=== PATIENT | male | born 1965 | race Caucasian/White ===

== ENCOUNTER 2017-08-14 02:18 | Observation (INO) | payer BC ==
[~2017-08-14] VITALS: Ht 172.7 cm; Wt 86.8 kg
[2017-08-14 02:56] LABS: HEMATOCRIT 41.4 % (38.0-50.0); HEMOGLOBIN 14.7 G/DL (12.5-16.6); MCH 32.5 PG (29.0-34.0); MCHC 35.5 G/DL (30.0-36.0); MCV 91.6 FL (86-99); PLATELET COUNT 271 K/uL (156-360); RBC DIS.WIDTH-CV 12.2 % (11.8-14.6); RED BLOOD COUNT 4.52 M/uL (4.00-5.50); WHITE BLOOD COUNT 14.3 K/uL (4.1-10.2)
[2017-08-14 03:10] LABS: ALBUMIN 4.6 g/dL (3.2-4.8); CHLORIDE 104 mEq/L (99-109); POTASSIUM 4.4 mEq/L (3.7-5.4); SODIUM 138 mEq/L (136-147)
[2017-08-14 03:12] LABS: GLUCOSE 166 mg/dL (70-99)
[2017-08-14 03:13] LABS: TOTAL PROTEIN 7.1 g/dL (6.4-8.3)
[2017-08-14 03:14] LABS: TOTAL BILIRUBIN 0.4 mg/dL (0.0-1.0)
[2017-08-14 03:16] LABS: ALKALINE PHOSPHATASE 77 IU/L (3-129); TROP-I INTERPRETATION NEGATIVE; TROPONIN-I < 0.01 ng/mL (0.0-0.30)
[2017-08-14 03:17] LABS: UREA NITROGEN (BUN) 18 mg/dL (9-23)
[2017-08-14 03:18] LABS: AST (GOT) 26 IU/L (2-34)
[2017-08-14 03:19] LABS: ALT (GPT) 38 IU/L (3-49); LIPASE 17 U/L (1.0-51.0)
[2017-08-14 03:26] LABS: GFR ESTIMATE (CALCULATED) > 59 mL/min/ (58.99-99999)
[2017-08-14 05:43] LABS: APPEARANCE CLEAR ((CLEAR)); BILIRUBIN NEGATIVE; BLOOD SMALL; COLOR STRAW ((YELLOW)); GLUCOSE (STRIP) 50; KETONES 5; LEUKOCYTES NEGATIVE; NITRITE NEGATIVE; PROTEIN (STRIP) NEGATIVE; SPECIFIC GRAVITY 1.011 (1.000-1.030); UROBILINOGEN 0.2 MG/DL (0.2-1.0)
[2017-08-14 06:15] LABS: BACTERIA NONE SEEN /HPF; EPITHELIAL CELLS NONE SEEN /HPF; MUCUS NONE SEEN /LPF; RED BLOOD CELLS 0-5 /HPF (0-5); UCUL ADDED? NO; WHITE BLOOD CELLS 0-5 /HPF (0-5)
[2017-08-14 17:44] VITALS: BP 136/102
[2017-08-14 18:58] VITALS: BP 142/89
[2017-08-14 23:36] VITALS: BP 138/90
[2017-08-15 04:19] VITALS: BP 125/74
[2017-08-15 07:58] VITALS: BP 144/105
[2017-08-15] MEDS ORDERED: BACTRIM,SEPT1 TABLET PO (09:13)
[2017-08-15] MEDS ORDERED: ENDOCET 5-3251 EACH PO (09:13)
[2017-08-15] MEDS ORDERED: TAMSULOSIN HCL0.4 MG PO (09:13)
[2017-08-15] MEDS ORDERED: AMLODIPINE BESYL5 MG PO (09:14)
== END 2017-08-15 11:10 | disposition home or self-care (01) ==
LOC: EME 02:18 → EDOF 05:57 → 5WEST 05:57 → EDOF 05:57 → ENRESERV 06:04 → 5WEST 17:39 → EDPENDDISTM 08-15 → EDPENDDISDT 08-15 → 5WEST 08-15 11:10
PROVIDERS: Emergency Medicine; Hospitalist
DX: N13.2 Hydronephrosis with renal and ureteral calculous obstruction (principal); Z85.820 Personal history of malignant melanoma of skin; D72.829 Elevated white blood cell count, unspecified
CPT/HCPCS: 71045; 74177; 74420; 80053; 81003; 82365 90; 82948; 83605; 83690; 84484; 85027; 93005; 99281; 99285; C1726; C2625; G0378; J0131; J0360; J0692; J1170; J1200; J1885; J2250; J2270; J2405; J3010; J7030; J7120; S0028